=== PATIENT | male | born 1970 | race Caucasian/White ===

== ENCOUNTER 2018-02-24 10:12 | Emergency (ER) | payer SELFPAY ==
[2018-02-24 10:48] LABS: Bilirubin Negative (Negative); Blood, Urine Moderate (Negative); Glucose, Urine (Dipstick) >=1000 mg/dL (Negative); Leukocyte Small (Negative); Nitrite Negative (Negative); Protein, Urine (Dipstick) Negative (Neg-Trace); Urobilinogen 0.2 mg/dL (0.2-1.0)
[2018-02-24 10:55] LABS: Clarity Cloudy (Clear)
[2018-02-24 10:56] LABS: Specific Gravity, Urine 1.031 (1.002-1.036)
[2018-02-24 11:04] LABS: RBC/HPF 21-50 HPF (0-3)
[2018-02-24 11:05] LABS: Bacteria/HPF 1+ HPF (None Seen)
[2018-02-28 03:20] LABS: Chlamydia by PCR Inconclusive (NotDetected); GC by PCR Inconclusive (NotDetected)
== END 2018-02-24 12:37 | disposition left against medical advice (07) ==
LOC: ERS 10:12
DX: Z53.21 Procedure and treatment not carried out due to patient leaving prior to being seen by health care provider (principal)
CPT/HCPCS: 81003; 81015; 87491; 87591

== ENCOUNTER 2018-02-26 18:39 | Emergency (ER) | payer SELFPAY ==
[2018-02-26 19:17] LABS: Bilirubin Small (Negative); Blood, Urine Small (Negative); Clarity CLOUDY (Clear); Glucose, Urine (Dipstick) >=1000 mg/dL (Negative); Leukocyte Large (Negative); Nitrite Negative (Negative); Protein, Urine (Dipstick) Trace mg/dL (Neg-Trace); Specific Gravity, Urine 1.038 (1.002-1.036)
[2018-02-26 19:18] LABS: Bacteria/HPF None Seen HPF (None Seen); Hyaline Casts/LPF 0-3 HYALINE CAST LPF (0-3 Hyaline); Pathc Cast-AUWi Flag 0.43 (0-2.49); Squamous Epithelial None Seen HPF (0-3)
[2018-02-26] MEDS ORDERED: Lidocaine 1% PF 5 ML VIAL ONE (19:43)
[2018-02-26] MEDS ORDERED: cefTRIAXone\\ROCEPHIN 250 MG VIAL ONE (19:43)
== END 2018-02-26 20:00 | disposition home or self-care (01) ==
LOC: ERS 18:39
DX: N39.0 Urinary tract infection, site not specified (principal); R36.9 Urethral discharge, unspecified; Z86.711 Personal history of pulmonary embolism; F41.9 Anxiety disorder, unspecified; F17.210 Nicotine dependence, cigarettes, uncomplicated
CPT/HCPCS: 81001; 87491; 87591; 96372; J0696; J2001

== ENCOUNTER 2018-12-01 04:00 | Inpatient (IN) | payer SELFPAY ==
[2018-12-01] MEDS ORDERED: Vancomycin HCl 1.5 GM in Sodium Chloride 0.9% 250 ML 300 ML IVPB SCH (05:45)
[2018-12-01] MEDS ORDERED: MEROPENEM 1 GM/50 ML 1 GM in Premix Bag 1 BAG IVPB SCH (05:45)
[2018-12-01 05:48] LABS: #Eosinphils 0.2 thou/uL (0.0-0.7); #Lymphocytes 1.9 thou/uL (1.20-3.40); #Monocytes 0.8 thou/uL (0.11-0.59); #Neutrophils 3.5 thou/uL (1.40-6.50); %Basophils 0.3 % (0.0-1.0); %Eosinophils 2.7 % (0.0-10.0); %Lymphocytes 29.8 % (21.0-51.0); %Monocytes 12.3 % (0.0-10.0); Hemoglobin 15.5 g/dL (14.0-18.0); Mean Corpuscular HGB CONC 32.1 g/dL (32.0-36.0); Mean Corpuscular Hemoglobin 29.3 pg (27.0-31.0); Mean Corpuscular Volume 91.3 fL (78.0-98.0); Mean Platelet Volume 7.4 fL (7.4-10.4); Platelet Count 209 thou/uL (130-400); RBC Distribution Width 11.9 % (11.5-14.5); Red Blood Cell (RBC) Count 5.29 mill/uL (4.70-6.10); White Blood Cell (WBC) Count 6.4 thou/uL (4.8-10.8)
[2018-12-01 06:06] LABS: ALT (SGPT) 28 U/L (8-55); AST (SGOT) 22 U/L (5-34); Albumin 3.8 g/dL (3.5-5.0); Alkaline Phosphatase 104 U/L (40-150); Anion Gap 9 mmol/L (10-20); BUN (Urea Nitrogen) 11 mg/dL (8.9-20.6); Bilirubin, Total 0.4 mg/dL (0.2-1.2); Calc. Creatinine Clearance 0 mL/min (70-130); Carbon Dioxide 31 mmol/L (22-29); Chloride 105 mmol/L (98-107); Estimated GFR-MDRD Greater than 90; Globulin 3.1 g/dL (2.4-3.5); Glucose 129 mg/dL (70-105); Potassium 4.6 mmol/L (3.5-5.1); Protein, Total 6.9 g/dL (6.0-8.3); Sodium 140 mmol/L (136-145)
[2018-12-01 06:17] LABS: Prothrombin Time 13.1 SEC (12.0-14.7)
[2018-12-01] MEDS ORDERED: Fentanyl 100 MCG/2 ML VIAL ONE ×3 (06:18→08:34)
[2018-12-01 06:35] LABS: HBCM Index 0.21 S/CO (0-0.79); HBSAg Index 0.19 S/CO (0-0.99); HIV (1/2) Antibody/Antigen Non-Reactive (NonReactive); HIV 1/2 INDEX 0.07 S/CO (<1.00); Hep A IgM AB Non-Reactive (NonReactive); Hep A IgM S/CO 0.45 S/CO (0-0.79); Hep B Surf Ag Non-Reactive S/CO (NonReactive); Hep C IgG Ab Non-Reactive (NonReactive); Hep C Index 0.18 S/CO (0-0.79); Hepatitis B Core IgM Abs Non-Reactive (NonReactive)
[2018-12-01] MEDS ORDERED: Bacitracin Zinc Ointment 30 gm TUBE ONE (06:35)
[2018-12-01] MEDS ORDERED: Bupivacaine 0.25% HCL 30 ML VIAL ONE (06:35)
[2018-12-01] MEDS ORDERED: Neomycin-Polymyxin 1 ML AMP ONE (07:06)
--- NOTE | 2018-12-01 07:43 | ULT ---
SOFT TISSUE ULTRASOUND OF THE SHAFT OF THE PENIS: INDICATION: Penile wound. Concern for possible abscess. COMPARISON: None. FINDINGS: Submitted burden scale, color Doppler, and spectral Doppler images of the shaft of the penis demonstrat e some mild soft tissue swelling of the tissue; however, no drainable fluid collection is evident. W ithin the provided Doppler images of the vasculature of the shaft of the penis there is appropriate f low. IMPRESSION: No definite drainable fluid collection seen. POS: BH
[2018-12-01] MEDS ORDERED: diphenhydrAMINE 50 MG/ML VIAL IVP PRN (08:00)
[2018-12-01] MEDS ORDERED: hydrALAZINE 20 MG/ML VIAL SLOW IVP PRN ×2 (08:00)
[2018-12-01] MEDS ORDERED: Ondansetron HCl/PF 4 MG/2 ML Vial IVP PRN (08:03)
[2018-12-01] MEDS ORDERED: Promethazine HCl 25 MG/ML VIAL SLOW IVP PRN (08:03)
[2018-12-01] MEDS ORDERED: Promethazine HCl 25 MG/ML VIAL IM PRN (08:03)
[2018-12-01] MEDS ORDERED: Meperidine HCl/PF 25 MG/ML VIAL ONE (08:17)
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
[2018-12-01] MEDS ORDERED: Vancomycin HCl 1 GM in Premix Bag 1 BAG IVPB SCH (09:00)
[2018-12-01] MEDS ORDERED: Famotidine/PF 20 mg/2ml Vial SLOW IVP SCH (09:00)
[2018-12-01] MEDS: Docusate 100 MG CAP PO SCH ×2 (10:43→21:29)
[2018-12-01] MEDS: Sodium Chloride 0.9% 1,000 ML IV SCH ×2 (10:43→16:58)
[2018-12-01 11:02] VITALS: BMI 21.8
[2018-12-01] MEDS ORDERED: Ondansetron ODT 4 MG TAB PO PRN (11:11)
[2018-12-01] MEDS ORDERED: Ondansetron PF 4 MG/2 ML Vial IVP PRN (11:11)
[2018-12-01] MEDS ORDERED: Acetaminophen 650 MG Suppository PR PRN (11:11)
[2018-12-01] MEDS ORDERED: Acetaminophen 325 MG TAB PO PRN (11:11)
--- NOTE | 2018-12-01 11:25 | PDOC.HHP ---
Hospitalist HPI - History of Present Illness Penile infection History of Present Illness: Mr. Corado is a 47 year old man who presents due to worsening pain/infection involving the shaft of his penis which started 3-4 days ago, associated with injecting Meth. Patient states he had significant pain but was prompted by his friend to come in and seek attention. Denies having any fevers or chills at home. Has had mild dysuria. No hematuria. Denies any abdominal pain/cramping. No headaches or dizziness. Denies chest pain and palpitations. Reports having a history of PE 2 years ago, unsure what caused it and had been on anticoagulation with coumadin which he stopped on his own due to not wanting to deal with frequent blood tests. States he has not had any lower leg swelling, no shortness of breath. No cough or hemoptysis. ED Course: Patient was noted to be hemodynamically normal. Received a tetanus injection. Also started on IV Abx with Vancomycin and Meropenem. Labs generally unremarkable. HIV negative. He was seen by Dr. Veloz of Urology, and was taken for emergency penile debridement. An ultrasound was done and did not show any definite fluid collection. Hospitalist ROS - Review of Systems Constitutional: denies: fever, chills, sweats, weakness, malaise, other Eyes: denies: pain, vision change, conjunctivae inflammation, eyelid inflammation, redness, other ENT: denies: ear pain, ear discharge, nose pain, nose discharge, nose congestion , mouth pain, mouth swelling, throat pain, throat swelling, other Respiratory: denies: cough, dry, shortness of breath, hemoptysis, SOB with excertion, pleuritic pain, sputum, wheezing, other Cardiovascular: denies: chest pain, palpitations, orthopnea, paroxysmal noc. dyspnea, edema, light headedness, other Gastrointestinal: denies: nausea, vomiting, abdominal pain, diarrhea, constipation, melena, hematochezia, other Genitourinary: reports: dysuria (mild dysuria). denies: frequency, incontinence , hematuria, retention, other Musculoskeletal: denies: neck pain, shoulder pain, arm pain, back pain, hand pain, leg pain, foot pain, other Skin: reports: other (draining wound to penile shaft). denies: rash, lesions, marlys, bruising Neurological: denies: weakness, numbness, incoordination, change in speech, confusion, seizures, other - Medication Medications: Active Medications Generic Name Dose Route Start Last Admin Trade Name Jackie PRN Reason Stop Dose Admin Docusate Sodium 100 mg 12/01/18 09:00 12/01/18 10:43 Colace PO 100 mg BID CRYS Administration Famotidine 20 mg 12/01/18 09:00 12/01/18 10:43 Pepcid SLOW IVP 20 mg Q12HR CRYS Administration Sodium Chloride 1,000 mls @ 120 mls/hr 12/01/18 08:00 12/01/18 10:43 Normal Saline 0.9% IV 1,000 mls .[id number] CRYS Administration Hospitalist History - Past Medical History Source: patient (patient very vague), other (friend) Cardiac: reports: no pertinent history Pulmonary: reports: pulmonary embolism (2 years ago and previously on anticoagulation. Stopped it on his own. 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 Gastrointestinal: reports: no pertinent history Heme/Onc: reports: no pertinent history Hepatobiliary: reports: no pertinent history Psych: reports: Anxiety, Addictions Musculoskeletal: reports: no pertinent history Rheumatologic: reports: no pertinent history ENT: reports: no pertinent history Renal/: reports: no pertinent history Endocrine: reports: no pertinent history Dermatology: reports: no pertinent history - Past Surgical History Past Surgical History: reports: Cholecystectomy - Family History Family History: reports: no pertinent history - Social History Smoking Status: Current some day smoker (1 pack per week) Alcohol: reports: Occassional Drugs: reports: methamphetamine (last used this morning an hour before coming into the ER) Activity level: independent ambulation - Exam General Appearance: NAD (Appears thin with facial wasting) Eye: PERRL, anicteric sclera ENT: normocephalic atraumatic, no oropharyngeal lesions Neck: supple, no lymphadenopathy Heart: RRR Respiratory: CTAB, no wheezes, no rales, no ronchi, normal chest expansion, no tachypnea Gastrointestinal: soft, non-tender, non-distended, normal bowel sounds, no palpable masses, no guarding, no rigidity Extremities: no cyanosis, no clubbing, no edema (no calf tenderness/swelling) Skin: normal turgor Skin - other findings: Patient deferred wound exam (s/p debridement of penile ulcer/wound) Neurological: cranial nerve grossly intact Musculoskeletal: normal tone, normal strength Psychiatric: normal affect, A&O x 3 Hospitalist Results - Labs Result Diagrams: 12/01/18 05:32 12/01/18 05:32 Lab results: WBC 6.4 thou/uL (4.8-10.8) 12/01/18 05:32 Hgb 15.5 g/dL (14.0-18.0) 12/01/18 05:32 Hct 48.3 % (42.0-52.0) 12/01/18 05:32 MCV 91.3 fL (78.0-98.0) 12/01/18 05:32 Plt Count 209 thou/uL (130-400) 12/01/18 05:32 Neutrophils % 55.0 % (42.0-75.0) 12/01/18 05:32 Sodium 140 mmol/L (136-145) 12/01/18 05:32 Potassium 4.6 mmol/L (3.5-5.1) 12/01/18 05:32 Chloride 105 mmol/L (98-107) 12/01/18 05:32 Carbon Dioxide 31 mmol/L (22-29) H 12/01/18 05:32 BUN 11 mg/dL (8.9-20.6) 12/01/18 05:32 Creatinine 0.80 mg/dL (0.7-1.3) 12/01/18 05:32 Glucose 129 mg/dL (70-105) H 12/01/18 05:32 Calcium 9.0 mg/dL (7.8-10.44) 12/01/18 05:32 Total Bilirubin 0.4 mg/dL (0.2-1.2) 12/01/18 05:32 AST 22 U/L (5-34) 12/01/18 05:32 ALT 28 U/L (8-55) 12/01/18 05:32 Alkaline Phosphatase 104 U/L (40-150) 12/01/18 05:32 Serum Total Protein 6.9 g/dL (6.0-8.3) 12/01/18 05:32 Albumin 3.8 g/dL (3.5-5.0) 12/01/18 05:32 Hospitalist H&P A/P - Problem (1) Abscess of shaft of penis Code(s): N48.29 - OTHER INFLAMMATORY DISORDERS OF PENIS Status: Acute Assessment and Plan: S/p debridement and on IV Abx. Continue. Wound care already consulted. (2) Methamphetamine abuse Code(s): F15.10 - OTHER STIMULANT ABUSE, UNCOMPLICATED Status: Acute Assessment and Plan: Patient admits to drug use and injecting into penis. Last used an hour before coming in. (3) History of pulmonary embolism Code(s): Z86.711 - PERSONAL HISTORY OF PULMONARY EMBOLISM Status: Acute Assessment and Plan: Denies any symptoms associated with PE. Was on Coumadin until 2 years ago. States he has no known coagulation disorder. - Plan Plan: FULL CODE STATUS. Surrogate decision maker is his father: Pravin Almazan. Will discuss with Dr. Levin for further recommendations.
[2018-12-01] MEDS ORDERED: Meropenem 2 GM in Admixture Fee 1 EACH IVPB SCH (14:00)
[2018-12-01] MEDS: Meropenem 2 GM in Sodium Chloride 0.9% 100 ML IVPB SCH ×2 (14:10→21:28)
[2018-12-01] MEDS: Vancomycin HCl 1 GM in Premix Bag 1 BAG IVPB SCH (16:58)
[2018-12-01] MEDS ORDERED: Famotidine 20 MG TAB PO SCH (21:00)
--- NOTE | 2018-12-01 22:46 | CON ---
DATE OF CONSULTATION: 12/01/2018 REASON FOR CONSULTATION: Penile abscess. HISTORY OF PRESENT ILLNESS: This is a 47-year-old patient with a history of pulmonary embolism, who recently attempted to inject methamphetamine in the dorsal vein of his penis and developed inflammatory process which worsened over time. He had surgical debridement by Dr. Veloz today. There was a circumscribed wound with necrotic tissue in the right proximal penile shaft measuring 4 to 5 cm. There was some necrosis associated with it. No purulent discharge was noted. Currently, he is difficult to arouse in the room. He is arousable, answers few questions, follows some commands. Denies any headaches. No shortness of breath or chest pain. No abdominal pain. Mild pain in the genital area. No joint symptoms. No neurological symptoms. PAST MEDICAL HISTORY: Pulmonary embolism and methamphetamine use intravenously. ALLERGIES: NONE. CURRENT MEDICATIONS: 1. Benadryl. 2. Colace. 3. Pepcid. 4. Meropenem. 5. Vancomycin. FAMILY HISTORY: Noncontributory. SOCIAL HISTORY: He lives in [place] with his family. PHYSICAL EXAMINATION: VITAL SIGNS: Temperature max 98.2, blood pressure 120/74, pulse 72, respirations 16, and O2 sat 98%. GENERAL: He appears in no distress. HEENT: Ocular movements are conjugate. Oral cavity with numerous teeth with some decay. NECK: Supple. LUNGS: Symmetric. Clear breath sounds. HEART: S1 and S2, regular rate. No S3 or S4. No murmurs. ABDOMEN: Soft, not distended or tender. No ascites. No bladder distention. GENITOURINARY: The patient is voiding in the urinal. LABORATORY DATA: White cell count 6.4, hemoglobin 15, platelets 209, and normal differential. Creatinine 0.8. Liver profile normal. Glucose 129. Hepatitis serology and HIV serology, nonreactive. Cultures from the tissue, Gram stain with polymicrobial zachary including gram-positive cocci and gram-negative rods and positive rods. Acid-fast smear was negative. ASSESSMENT: History of pulmonary embolism in the past and now attempted injecting methamphetamine in the penile vein with necrosis and abscess formation, which has been debrided. Most of it was necrosis, but no abscess was seen, which is somewhat expected in view of the vasoconstrictive properties of methamphetamine. We will wait for the culture results and then define antimicrobial therapy. It looks like this was a limited process to the area and healthy viable tissue was seen after the initial debridement. Job ID: [id number]
[2018-12-02] MEDS: Vancomycin HCl 1 GM in Premix Bag 1 BAG IVPB SCH
[2018-12-02 00:23] VITALS: BP 125/85; TEMP 98.2
[2018-12-02] MEDS: Sodium Chloride 0.9% 1,000 ML IV SCH (00:40)
--- NOTE | 2018-12-03 02:04 | DIS ---
DATE OF ADMISSION: 12/01/2018 DATE OF DISCHARGE: 12/02/2018 DISCHARGE DIAGNOSIS: Penile abscess secondary to injecting methamphetamine into his penis. CONSULTATIONS: 1. Dr. Nitish Chavez with Urology Service. 2. Dr. Magallon with Infectious Disease Service. PERTINENT LABORATORY AND X-RAY FINDINGS: Hemoglobin A1c 5.0. Hepatitis A, B, and C panel negative, 12/01/2018. HIV-1 and HIV-2 antigen and antibody nonreactive. Penile tissue culture dated 12/01/2018, showed Staphylococcus aureus. HOSPITAL COURSE: The patient was admitted to the surgical loera after presenting with a penile abscess after injecting methamphetamine into the dorsal penile vein. The patient was noted with necrotic tissue, undergoing penile exploration with debridement of the abscess, 12/01/2018. The patient apparently tolerated the procedure and was returned to the surgical loera. The patient apparently left the loera in the jewelry designer hours, 12/02/2018, and did not return. Security was notified, however, the patient was not discovered at which point, nursing personnel and the finishing manager signed the patient out against medical advice. Job ID: [id number]
[2018-12-04 16:09] LABS: Fungus Stain Final report (.)
== END 2018-12-02 02:09 | disposition left against medical advice (07) | DRG 709 ==
LOC: ERS 04:00 → SJJU 08:17 → OBSVTOIN 08:17 → SJJU 10:46 → 3SW 10:46
PROVIDERS: ADMIT Hospitalist; ATTEND Hospitalist
PROC: 0VBS0ZZ Excision of Penis, Open Approach (ICD-10-PCS; principal; 2018-12-01)
DX: N48.21 Abscess of corpus cavernosum and penis (principal); I96 Gangrene, not elsewhere classified; F15.10 Other stimulant abuse, uncomplicated; Z90.49 Acquired absence of other specified parts of digestive tract; F41.9 Anxiety disorder, unspecified; Z86.711 Personal history of pulmonary embolism
CPT/HCPCS: 36415; 76999; 80053; 80074; 83036; 85025; 85610; 85730; 87070; 87077; 87102; 87116; 87186; 87205; 87206; 87389; 96365; 96368; J2175; J2185; J3010; J3370; J3490; J7050; S0020; S0028

== ENCOUNTER 2019-10-05 22:29 | Emergency (ER) | payer SELFPAY ==
[2019-10-06] MEDS ORDERED: Ketorolac Tromethamine 30 MG/ML VIAL ONE (00:50)
== END 2019-10-06 00:54 | disposition home or self-care (01) ==
LOC: ERS 22:29
DX: M54.5 Low back pain (principal); F17.210 Nicotine dependence, cigarettes, uncomplicated
CPT/HCPCS: 96372; 99283; J1885

== ENCOUNTER 2020-01-11 19:58 | Emergency (ER) | payer SELFPAY ==
[2020-01-11 20:41] LABS: Bilirubin Negative (Negative); Blood, Urine 2+ (Negative); Clarity Extra Turbid (Clear); Glucose, Urine (Dipstick) >=1000 mg/dL (Negative); Ketone, Urine Negative (Negative); Leukocyte 500 Leu/uL (Negative); Nitrite Negative (Negative); Protein, Urine (Dipstick) 50 mg/dL (Neg-Trace); Specific Gravity, Urine 1.034 (1.002-1.036); Squamous Epithelial None Seen HPF (0-3); WBC/HPF Greater than 50 HPF (0-3); pH, Urine 5.5 (5.0-9.0)
[2020-01-11 20:43] LABS: Bacteria/HPF Rare-Few HPF (None Seen); RBC/HPF 21-50 HPF (0-3)
[2020-01-11] MEDS ORDERED: cefTRIAXone\\ROCEPHIN 1 GM VIAL ONE (20:54)
[2020-01-11] MEDS ORDERED: Azithromycin 250 MG TAB ONE (20:54)
[2020-01-11] MEDS ORDERED: Lidocaine 1% PF 5 ML VIAL ONE (20:54)
[2020-01-14 23:27] LABS: Chlam.trachomatis by PCR,Urine Not Detected (NotDetected)
== END 2020-01-11 21:02 | disposition home or self-care (01) ==
LOC: ERS 19:58
DX: R30.0 Dysuria (principal); R36.9 Urethral discharge, unspecified
CPT/HCPCS: 81003; 81015; 87491; 87591; 96372; 99281; J0696

== ENCOUNTER 2022-06-20 17:31 | Emergency (ER) | payer SELFPAY ==
[2022-06-20] MEDS ORDERED: Cyclobenzaprine 10 MG TAB ONE (18:02)
[2022-06-20] MEDS ORDERED: Ketorolac Tromethamine 30 MG/ML VIAL ONE (18:02)
== END 2022-06-20 20:10 | disposition home or self-care (01) ==
LOC: ERS 17:31
DX: M54.50 Low back pain, unspecified (principal); Z87.891 Personal history of nicotine dependence
CPT/HCPCS: 72100; 96372; J1885

== ENCOUNTER 2022-09-16 12:43 | Inpatient (IN) | payer SELFPAY ==
[2022-09-16] MEDS ORDERED: diphenhydrAMINE 50 MG/ML VIAL ONE (13:04)
[2022-09-16] MEDS ORDERED: Famotidine/PF 20 mg/2ml Vial ONE (13:04)
[2022-09-16] MEDS ORDERED: methylPREDNISolone Sod Succ/PF 125 MG/2 ML VIAL ONE (13:04)
[2022-09-16 13:39] LABS: #Eosinphils 0.3 thou/uL (0.0-0.7); #Monocytes 0.7 thou/uL (0.11-0.59); %Basophils 0.4 % (0.0-1.0); %Eosinophils 5.2 % (0.0-10.0); %Monocytes 11.9 % (0.0-10.0); Hemoglobin 17.3 g/dL (14.0-18.0); Mean Corpuscular HGB CONC 34.2 g/dL (32.0-36.0); Mean Corpuscular Hemoglobin 30.2 pg (27.0-31.0); Mean Corpuscular Volume 88.5 fl (78.0-98.0); Mean Platelet Volume 10.6 fL (7.4-10.4); Platelet Count 224 10x3/uL (130-400); RBC Distribution Width 12.6 % (11.5-14.5); Red Blood Cell (RBC) Count 5.72 mill/uL (4.70-6.10); White Blood Cell (WBC) Count 5.6 10x3/uL (4.8-10.8)
[2022-09-16 13:52] LABS: PTT 30.2 sec (22.9-36.1); Prothrombin Time 13.1 sec (12.0-14.7)
[2022-09-16 13:58] LABS: ALT (SGPT) 42 U/L (8-55); AST (SGOT) 39 U/L (5-34); Albumin 4.3 g/dL (3.5-5.0); Alkaline Phosphatase 138 U/L (40-110); Anion Gap 17 mmol/L (10-20); BUN (Urea Nitrogen) 12 mg/dL (8.4-25.7); Bilirubin, Total 1.2 mg/dL (0.2-1.2); Calc. Creatinine Clearance 0 mL/min (70-130); Calcium 9.8 mg/dL (7.8-10.44); Carbon Dioxide 26 mmol/L (22-29); Chloride 100 mmol/L (98-107); Estimated GFR 108; Globulin 3.7 g/dL (2.4-3.5); Glucose 97 mg/dL (70-105); Potassium 4.1 mmol/L (3.5-5.1); Sodium 139 mmol/L (136-145)
[2022-09-16 15:13] VITALS: BMI 21.7
[2022-09-16 15:26] VITALS: TEMP 97.9
[2022-09-16] MEDS ORDERED: Ondansetron ODT 4 MG TAB PO PRN (16:25)
[2022-09-16] MEDS ORDERED: Acetaminophen 325 MG TAB PO PRN (16:25)
[2022-09-16] MEDS ORDERED: Acetaminophen 650 MG Suppository PR PRN (16:25)
[2022-09-16] MEDS ORDERED: Ondansetron PF 4 MG/2 ML Vial IVP PRN (16:25)
== END 2022-09-16 16:00 | disposition left against medical advice (07) | DRG 916 ==
LOC: ERS 12:43 → IMCU/EMU 14:03
PROVIDERS: ADMIT Student in an Organized Health Care Education/Training Program; ATTEND Student in an Organized Health Care Education/Training Program
PROC: 0CJS8ZZ Inspection of Larynx, Via Natural or Artificial Opening Endoscopic (ICD-10-PCS; principal; 2022-09-16)
DX: T78.3XXA Angioneurotic edema, initial encounter (principal); F41.9 Anxiety disorder, unspecified; F32.A Depression, unspecified; Z87.891 Personal history of nicotine dependence; Z86.711 Personal history of pulmonary embolism; Z90.49 Acquired absence of other specified parts of digestive tract
CPT/HCPCS: 80053; 85025; 85610; 85730; 96374; 96375; J1200; J2930; S0028

== ENCOUNTER 2023-09-25 23:29 | Emergency (ER) | payer BC, SELFPAY ==
[2023-09-26 02:38] LABS: Bacteria/HPF None Seen HPF (None Seen); Bilirubin Negative (Negative); Blood, Urine 1+ (Negative); CAUTI Indications for Culture Dysuria,urgency,freq; Clarity Turbid (Clear); Glucose, Urine (Dipstick) >=1000 mg/dL (Negative); Ketone, Urine Negative (Negative); Leukocyte 500 Leu/uL (Negative); Nitrite Negative (Negative); Protein, Urine (Dipstick) 20 mg/dL (Neg-Trace); Specific Gravity, Urine 1.029 (1.002-1.036); Squamous Epithelial None Seen HPF (0-3); Urine Culture Reflex Yes Yes; Urobilinogen 6 mg/dL (Less than 2); WBC/HPF Greater than 50 HPF (0-3); pH, Urine 5.5 (5.0-9.0)
[2023-09-26 03:39] LABS: #Basophils Less than 0.03 10x3/uL (0.0-0.2); %Basophils 0.1 % (0.0-1.0); %Eosinophils 2.8 % (0.0-10.0); %Lymphocytes 23.4 % (21.0-51.0); %Monocytes 11.5 % (0.0-10.0); %Neutrophils 61.8 % (42.0-75.0); Hematocrit 51.8 % (42.0-52.0); Hemoglobin 17.3 g/dL (14.0-18.0); Mean Corpuscular HGB CONC 33.4 g/dL (32.0-36.0); Mean Corpuscular Hemoglobin 31.7 pg (27.0-31.0); Mean Corpuscular Volume 94.9 fL (78.0-98.0); Mean Platelet Volume 10.3 fL (7.4-10.4); Platelet Count 192 10x3/uL (130-400); RBC Distribution Width 13.6 % (11.5-14.5); Red Blood Cell (RBC) Count 5.46 mill/uL (4.70-6.10)
[2023-09-26 04:00] LABS: ALT (SGPT) 27 U/L (8-55); AST (SGOT) 26 U/L (5-34); Albumin 3.8 g/dL (3.5-5.0); Alkaline Phosphatase 84 U/L (40-110); Anion Gap 13 mmol/L (10-20); BUN (Urea Nitrogen) 9 mg/dL (8.4-25.7); Bilirubin, Total 0.6 mg/dL (0.2-1.2); Calc. Creatinine Clearance 0 mL/min (70-130); Calcium 9.4 mg/dL (7.8-10.44); Carbon Dioxide 27 mmol/L (22-29); Chloride 107 mmol/L (98-107); Estimated GFR 109; Globulin 3.5 g/dL (2.4-3.5); Glucose 97 mg/dL (70-105); Potassium 5.1 mmol/L (3.5-5.1); Protein, Total 7.3 g/dL (6.0-8.3); Sodium 142 mmol/L (136-145)
[2023-09-26 13:57] LABS: Chlam.trachomatis by PCR,Urine DETECTED (NotDetected); GC N.gonorrhoeae PCR,UrineVOID DETECTED (NotDetected)
== END 2023-09-26 03:56 | disposition home or self-care (01) ==
LOC: ERS 23:29
DX: N39.0 Urinary tract infection, site not specified (principal); R81 Glycosuria; Z55.6 Problems related to health literacy; Z87.891 Personal history of nicotine dependence
CPT/HCPCS: 36415; 80053; 81001; 85025; 87086; 87491; 87591; 99283

== ENCOUNTER 2023-10-03 20:28 | Emergency (ER) | payer BC ==
[2023-10-03] MEDS ORDERED: Lidocaine 1% MPF 2 ML VIAL ONE (20:40)
[2023-10-03] MEDS ORDERED: cefTRIAXone (ROCEPHIN) 500 MG VIAL ONE (20:41)
== END 2023-10-03 21:05 | disposition home or self-care (01) ==
LOC: ERS 20:28
DX: A54.9 Gonococcal infection, unspecified (principal); A74.9 Chlamydial infection, unspecified; Z87.891 Personal history of nicotine dependence
CPT/HCPCS: 96372; 99282; J0696